=== PATIENT | male | born 1950 | race Hispanic/Latino ===

== ENCOUNTER 2018-01-19 14:07 | Emergency (ER) | payer MEDICARE ==
[2018-01-19 14:31] VITALS: PULSE 60
--- NOTE | 2018-01-19 15:37 | C.PDOC ---
History Of Present Illness 67 year old male with a Hx of prostate cancer, asthma, hypothyroidism, and Parkinson's disease presents to the ER with a complaint of lumps to the bilateral groin for the past 3 weeks. Patient has not been able to see his PMD or urologist because they are both on vacation. He is worried whether he can still exercise for his Parkinson's and worried if it may be his cancer. Patient has not received any treatment for his cancer, states he is just being observed for now. Denies pain, discharge, bleeding, or Hx of similar. Time Seen by Provider: 01/19/18 15:16 Chief Complaint (Nursing): Groin Pain History Per: Patient History/Exam Limitations: no limitations Onset/Duration Of Symptoms: Days Current Symptoms Are (Timing): Still Present Quality Of Discomfort: Pressure Associated Symptoms: denies: Fever, Chills, Urinary Symptoms Alleviating Factors: None Recent travel outside of the [place]: No Past Medical History Reviewed: Historical Data, Nursing Documentation, Vital Signs Vital Signs: Last Vital Signs Temp 98.0 F 01/19/18 14:27 Pulse 60 01/19/18 14:27 Resp 16 01/19/18 14:27 BP 123/75 01/19/18 14:27 Pulse Ox 94 L 01/19/18 15:44 - Medical History PMH: Asthma, Hypothyroidism, Parkinson's Disease Surgical History: Tonsillectomy Family History: States: Unknown Family Hx - Social History Hx Alcohol Use: No Hx Substance Use: No Review Of Systems Except As Marked, All Systems Reviewed And Found Negative. Genitourinary: Positive for: Other (Lumps to bilateral groin) Physical Exam - Physical Exam Appears: Non-toxic Skin: Normal Color, Warm, Dry Head: Atraumatic, Normacephalic Eye(s): bilateral: Normal Inspection Oral Mucosa: Moist Chest: Symmetrical, No Tenderness Cardiovascular: Rhythm Regular Respiratory: Normal Breath Sounds, No Rales, No Rhonchi, No Wheezing Gastrointestinal/Abdominal: Soft, No Tenderness, Hernia (Reducible umbilical) Male Genital: Other (Nontender bilateral reducible inguinal hernias. Both testis have decended, no penile lesions.) Neurological/Psych: Oriented x3, Normal Speech ED Course And Treatment O2 Sat by Pulse Oximetry: 94 (Room air) Pulse Ox Interpretation: Normal Disposition - Disposition Referrals: Janell Meier MD [Staff Provider] - Disposition: HOME/ ROUTINE Disposition Time: 15:46 Condition: STABLE Additional Instructions: follow up with Dr. Meier within 2 days call to make an appointment wear supportive undergarments continue home medications return to ER if symptoms worsens or progress Instructions: Inguinal and Femoral (Groin) Hernias Forms: [employer] ([place]), General Discharge Instructions - Clinical Impression Clinical Impression: Inguinal hernia - Scribe Statement The provider has reviewed the documentation as recorded by the Scribe Evens Gaines All medical record entries made by the Laminibe were at my direction and personally dictated by me. I have reviewed the chart and agree that the record accurately reflects my personal performance of the history, physical exam, medical decision making, and the department course for this patient. I have also personally directed, reviewed, and agree with the discharge instructions and disposition.
[2018-01-19 16:06] VITALS: BP 132/79; RESP 18; TEMP 98.7; O2SAT 95
== END 2018-01-19 16:10 | disposition home or self-care (01) ==
LOC: C.ER 14:07
DX: K40.20 Bilateral inguinal hernia, without obstruction or gangrene, not specified as recurrent (principal)

== ENCOUNTER 2018-04-29 16:47 | Inpatient (IN) | payer MEDICARE ==
[2018-04-29 16:59] VITALS: BMI 25.6
[2018-04-29] MEDS ORDERED: Enoxaparin 40 mg Syringe SC STA (17:10)
[2018-04-29] MEDS ORDERED: Aspirin 325 mg EC Tablets PO STA (17:12)
[2018-04-29 17:22] LABS: BASO % 0.4 % (0.0-2.0); EOS # 0.2 K/uL (0.0-0.7); HEMOGLOBIN 15.1 g/dL (12.0-18.0); LYMPH # 1.4 K/uL (1.0-4.3); LYMPH % 16.8 % (20.0-40.0); MEAN CELL VOLUME 87.7 fL (80.0-94.0); MEAN CORPUSCULAR HEMOGLOBIN 28.9 pg (27.0-31.0); MEAN PLATELET VOLUME 9.5 fL (7.2-11.7); MONO # 0.5 K/uL (0.0-0.8); MONO % 6.3 % (0.0-10.0); NEUT % 74.5 % (50.0-75.0); RBC 5.23 Mil/uL (4.40-5.90); RED CELL DISTRIBUTION WIDTH 14.6 % (11.5-14.5); WHITE BLOOD COUNT 8.1 K/uL (4.8-10.8)
[2018-04-29] MEDS ORDERED: Enoxaparin 80 mg Syringe ONE (17:22)
[2018-04-29] MEDS ORDERED: Aspirin 325 mg EC Tablets PO ONE (17:22)
--- NOTE | 2018-04-29 17:26 | C.PDOC ---
History Of Present Illness 68yo male, with history of Parkinsons disease, sent to ER from his PMD due to new onset rapid A-fib, diagnosed during routine pre-op EKG. Patient denies any palpitations or chest pain. he reports mild vertigo at baseline, which worsens with standing; patient attributes vertigo to his Parkinsons disease. No additional complaints. Time Seen by Provider: 04/29/18 17:09 Chief Complaint (Nursing): Chest Pain History Per: Patient History/Exam Limitations: no limitations Current Symptoms Are (Timing): Still Present Quality: denies: "Pain" Associated Symptoms: denies: Nausea, Dyspnea, Diaphoresis, Syncope Additional History Per: Patient Past Medical History Reviewed: Historical Data, Nursing Documentation, Vital Signs Vital Signs: Last Vital Signs Temp 97.7 F 04/29/18 17:00 Pulse 133 H 04/29/18 17:00 Resp 18 04/29/18 17:00 BP 128/72 04/29/18 17:00 Pulse Ox 97 04/29/18 17:00 - Medical History PMH: Asthma, Hypothyroidism, Parkinson's Disease Surgical History: Tonsillectomy Family History: States: No Known Family Hx - Social History Hx Tobacco Use: No Hx Alcohol Use: No Hx Substance Use: No Review Of Systems Except As Marked, All Systems Reviewed And Found Negative. Constitutional: Negative for: Fever, Chills Cardiovascular: Negative for: Chest Pain, Palpitations Gastrointestinal: Negative for: Nausea, Vomiting Neurological: Positive for: Dizziness Physical Exam - Physical Exam Appears: Non-toxic, No Acute Distress Skin: Normal Color, Warm, Dry Head: Atraumatic, Normacephalic Eye(s): bilateral: Normal Inspection Neck: Normal ROM, Supple Chest: Symmetrical Cardiovascular: Rhythm Irregular (tachycardia, irregularly irregular) Respiratory: Normal Breath Sounds Gastrointestinal/Abdominal: Normal Exam, Soft Extremity: Normal ROM, No Deformity, Other (mild right arm tremor, with rate of 6/second) Neurological/Psych: Oriented x3 ED Course And Treatment - Laboratory Results Result Diagrams: 04/29/18 17:18 04/29/18 17:18 Lab Interpretation: Normal (d-dimer neg, trop neg) ECG: Interpreted By Tx ECG Rhythm: Atrial Fibrillation ECG Interpretation: Abnormal Rate From EC O2 Sat by Pulse Oximetry: 97 (RA) Pulse Ox Interpretation: Normal - Radiology CXR: Interpreted by Me CXR Interpretation: Yes: No Acute Disease - Physician Consult Information Outcome Of Conversation: 1814: d/w Dr. Arias, Medicine [place], ok to admit Medical Decision Making Medical Decision Making: Impression: New onset AFib Plan: -- EKG -- Labs -- CXR -- Aspirin 325mg PO -- Cardizem 60mg PO -- Lovenox 80mg SC new onset MEET Disposition Doctor Will See Patient In The: Hospital Counseled Patient/Family Regarding: Studies Performed, Diagnosis - Disposition Disposition: HOSPITALIZED Disposition Time: 18:42 Condition: GOOD Forms: [employer] ([place]) - Clinical Impression Clinical Impression: Atrial fibrillation with RVR - Scribe Statement The provider has reviewed the documentation as recorded by the Lisa Jensen Provider Attestation: All medical record entries made by the Lisa were at my direction and personally dictated by me. I have reviewed the chart and agree that the record accurately reflects my personal performance of the history, physical exam, medical decision making, and the department course for this patient. I have also personally directed, reviewed, and agree with the discharge instructions and disposition.
[2018-04-29 17:57] LABS: INR 1.1; PARTIAL THROMBOPLASTIN TIME 42 SECONDS (21-34); PROTHROMBIN TIME 11.5 SECONDS (9.7-12.2)
[2018-04-29 18:02] LABS: D DIMER < 200 ng/mlDDU (0-243)
[2018-04-29 18:24] LABS: ALB/GLOB RATIO 1.6 (1.0-2.1); ALBUMIN 4.3 g/dL (3.5-5.0); ALT/SGPT 13 U/L (21-72); AST/SGOT 29 U/L (17-59); BLOOD UREA NITROGEN 20 mg/dL (9-20); CALCIUM 9.2 mg/dl (8.6-10.4); GFR NON-AFRICAN AMERICAN > 60
[2018-04-29 18:37] LABS: B-TYPE NATRIURETIC PEPTIDE 2380 pg/mL (0-900)
--- NOTE | 2018-04-29 18:51 | RAD ---
Date of service: 04/29/2018 PROCEDURE: CHEST RADIOGRAPH, 1 VIEW HISTORY: SOB COMPARISON: None available. FINDINGS: LUNGS: Clear. PLEURA: No pneumothorax or pleural fluid seen. CARDIOVASCULAR: No aortic atherosclerotic calcification present. No radiographic findings to suggest acute or significant cardiovascular disease. OSSEOUS STRUCTURES: No significant abnormalities. VISUALIZED UPPER ABDOMEN: Normal. OTHER FINDINGS: None. IMPRESSION: No active disease. Concordant results with the preliminary interpretation rendered by the emergency department physician procedure.
[2018-04-29 19:14] LABS: HDL CHOLESTEROL 63 mg/dL (30-70)
[2018-04-29 19:23] LABS: CK-MB 2.05 ng/mL (0.0-3.38)
[2018-04-29 19:25] LABS: LDL CHOLESTEROL 75 mg/dL (0-129)
[2018-04-29 20:31] VITALS: RESP 20
--- NOTE | 2018-04-29 23:53 | CP.PCM.HP ---
Past Patient History - Infectious Disease Hx of Infectious Diseases: None - Past Social History Smoking Status: Former Smoker - PULMONARY Hx Asthma: Yes - NEUROLOGICAL Hx Parkinson's Disease: Yes - ENDOCRINE/METABOLIC Hx Hypothyroidism: Yes - HEMATOLOGICAL/ONCOLOGICAL Hx Cancer: Yes (PROSTATE) - PSYCHIATRIC Hx Substance Use: No - SURGICAL HISTORY Hx Tonsillectomy: Yes - ANESTHESIA Hx Anesthesia: Yes Hx Anesthesia Reactions: No Meds Allergies/Adverse Reactions: Allergies Allergy/AdvReac Type Severity Reaction Status Date / Time No Known Allergies Allergy Verified 04/29/18 16:58 Results - Vital Signs Recent Vital Signs: Last Vital Signs Temp 97.3 F L 04/29/18 20:30 Pulse 91 H 04/29/18 21:51 Resp 20 04/29/18 21:51 BP 96/65 L 04/29/18 21:51 Pulse Ox 97 04/29/18 20:30 - Labs Result Diagrams: 04/29/18 17:18 04/29/18 17:18 Labs: Laboratory Results - last 24 hr 04/29/18 04/29/18 04/29/18 17:18 17:18 17:43 WBC 8.1 RBC 5.23 Hgb 15.1 Hct 45.8 MCV 87.7 MCH 28.9 MCHC 33.0 RDW 14.6 H Plt Count 224 MPV 9.5 Neut % (Auto) 74.5 Lymph % (Auto) 16.8 L Victoria % (Auto) 6.3 Eos % (Auto) 2.0 Baso % (Auto) 0.4 Neut # (Auto) 6.0 Lymph # (Auto) 1.4 Victoria # (Auto) 0.5 Eos # (Auto) 0.2 Baso # (Auto) 0.0 PT 11.5 INR 1.1 APTT 42 H D-Dimer, Quantitative < 200 Sodium 139 Potassium 4.2 Chloride 101 Carbon Dioxide 28 Anion Gap 14 BUN 20 Creatinine 0.7 L Est GFR ( Amer) > 60 Est GFR (Non-Af Amer) > 60 Random Glucose 127 H Calcium 9.2 Total Bilirubin 0.9 AST 29 ALT 13 L Alkaline Phosphatase 66 Total Creatine Kinase 92 CK-MB (Mass) 2.05 Troponin I 0.0120 NT-Pro-B Natriuret Pep 2380 H Total Protein 7.1 Albumin 4.3 Globulin 2.8 Albumin/Globulin Ratio 1.6 Triglycerides 68 Cholesterol 143 LDL Cholesterol Direct 75 HDL Cholesterol 63 TSH 3rd Generation 2.64
[2018-04-30 00:49] LABS: CK-MB 1.44 ng/mL (0.0-3.38)
[2018-04-30] MEDS ORDERED: Levothyroxine 150 MCG TAB PO SCH (06:30)
--- NOTE | 2018-04-30 07:14 | HP ---
CHIEF COMPLAINT: Abnormal EKG. HISTORY OF PRESENT ILLNESS: This is a 68-year old white male who has history of Parkinson's disease, and the patient went to his PMD in [facility] for preoperative evaluation for inguinal hernia repair, and an EKG was done, and he was found to have atrial fibrillation. At that point, he was told to go and see a tobacco conditioner, and he came to emergency room and he was hospitalized. The patient denies any dizziness, chest pain. He gets palpitation at time. He denies any nausea, vomiting, diarrhea. He denies any history of polyuria, polydipsia, or polyphagia. He denies any history of hematuria, pyuria. He denies any sneezing, itchy eyes, itchy nose. The patient denies any cough, sore throat. He has a history of hypothyroidism; and he is on thyroid replacement therapy, and he denies any joint pain. He denies any tingling, numbness, or paraesthesia. He denies any history of trauma, fall, loss of consciousness. No history of seizure-like activity. No history of joint pain, hip pain. No history of GI bleeding. He denies any history of dyspnea on exertion. PAST MEDICAL HISTORY: Hypothyroidism, Parkinson's disease, asthma, tonsillectomy. SOCIAL HISTORY: Nonsmoker. Non-ETOH user. CURRENT MEDICATIONS: He is on Synthroid and levothyroxine. PHYSICAL EXAMINATION: GENERAL: An elderly male, in no acute distress. The patient looks young per his age, and he is healthy. VITAL SIGNS: Blood pressure 128/72; pulse 133, irregularly irregular; respiratory rate 18; temperature 97.7. SKIN: Good turgor. No bruit. No purpura. No petechia. No ecchymosis. HEENT: Atraumatic. Normocephalic. Negative pallor. Negative jaundice. Extraocular movements are intact. NECK: Supple. No JVD. No lymph node. No thyromegaly. No carotid bruits. CHEST WALL: Bilateral symmetrical expansion. No tenderness. No deformity. No masses. LUNGS: Bilateral decreased air entry. No rales. No rhonchi. CARDIOVASCULAR SYSTEM: PMI in fifth intercostal space. S1 and S2 irregularly irregular. ABDOMEN: Soft and nontender. Bowel sounds are positive. RECTAL: No masses. No bleeding. EXTREMITIES: No clubbing, cyanosis, or edema. CENTRAL NERVOUS SYSTEM: Awake, alert, and oriented x3. Cranial nerves II through XII are normal. Power is 5/5 x4. Plantars are downgoing. ASSESSMENT: 1. New onset atrial fibrillation which is persistent etiology. Rule out hyperthyroidism with atrial fibrillation. Rule out hypertensive heart disease. Less likely to be diabetic cardiomyopathy, less likely to be ischemia. 2. Hypothyroidism, right now the patient is euthyroid. PLAN: Admit. Detailed orders written. Seen and examined. Maulik Arias MD
[2018-04-30 09:20] VITALS: TEMP 97.9
[2018-04-30 16:21] VITALS: BP 119/74; PULSE 110; O2SAT 97
--- NOTE | 2018-04-30 20:23 | CP.PCM.PN ---
Subjective - Subjective Subjective: dictated Objective - Vital Signs/Intake and Output Vital Signs (last 24 hours): Temp Pulse Resp BP Pulse Ox 97.9 F 110 H 20 119/74 97 04/30/18 15:19 04/30/18 15:19 04/30/18 15:19 04/30/18 15:19 04/30/18 15:19 - Medications Medications: Current Medications Carbidopa/Levodopa (Sinemet) 1 tab PO TID [facility] Last Admin: 04/30/18 17:14 Dose: 1 tab Diltiazem HCl (Cardizem) 30 mg PO Q8 [facility] Last Admin: 04/30/18 13:53 Dose: 30 mg Influenza Virus Vaccine (Fluzone Quad [id number]) 60 mcg IM .ONCE ONE Stop: 05/01/18 10:01 Levothyroxine Sodium (Synthroid) 150 mcg PO DAILY@0630 [facility] Last Admin: 04/30/18 06:25 Dose: 150 mcg Pneumococcal Polyvalent Vaccine (Pneumovax 23 Vaccine) 0.5 ml IM .ONCE ONE Stop: 05/01/18 10:01 Rivaroxaban (Xarelto) 15 mg PO BID [facility] Last Admin: 04/30/18 17:15 Dose: 15 mg Rosuvastatin Calcium (Crestor) 5 mg PO HS [facility] Last Admin: 04/29/18 21:49 Dose: 5 mg - Labs Labs: 04/29/18 17:18 04/29/18 17:18 PT 11.5 SECONDS (9.7-12.2) 04/29/18 17:43 INR 1.1 04/29/18 17:43 APTT 42 SECONDS (21-34) H 04/29/18 17:43
--- NOTE | 2018-05-01 02:16 | PN ---
DATE: 04/30/2018 SUBJECTIVE: The patient is afebrile. No shortness of breath. No chest pain. He had a small run of V-tach. PHYSICAL EXAMINATION VITAL SIGNS: Blood pressure 119/74, pulse 110, respiratory rate 20, temperature 97.9. LUNGS: Clear. CARDIOVASCULAR: S1 and S2 irregularly irregular. ABDOMEN: Soft. ASSESSMENT: 1. Atrial fibrillation with rapid ventricular response. 2. Hypertension. 3. Hypothyroidism. 4. Parkinson's disease. PLAN: The patient wants to sign out. Paper work has been given to the patient. Monitor the patient. Maulik Arias MD
[2018-05-01] MEDS ORDERED: Pneumococcal 23-Valent Vaccine IM ONE (10:00)
[2018-05-01] MEDS ORDERED: Influenza Vaccine 60 MCG/0.5 ML SYR (3 yr & up) IM ONE (10:00)
--- NOTE | 2018-05-01 17:50 | CARD ---
APPROVED REPORT Date of service: 04/30/2018 EXAM: Two-dimensional and M-mode echocardiogram with Doppler and color Doppler. Other Information Quality : GoodRhythm : NSRAtrial Fibrillation INDICATION Atrial Fibrillation RISK FACTORS Hypertension Hyperlipidemia 2D DIMENSIONS IVSd1.6 (0.7-1.1cm)Aortic Root (2D)3.2 (2.0-3.7cm) LVDd3.9 (3.9-5.9cm)PWd1.7 (0.7-1.1cm) LA Civbup017 (18-58mL)LVDs2.9 (2.5-4.0cm) FS (%) 26.5 %LVEF (%)52.5 (>50%) M-Mode DIMENSIONS RVDd2.73 (2.1-3.2cm)Left Atrium (MM)5.62 (2.5-4.0cm) IVSd0.94 (0.7-1.1cm)Aortic Root3.79 (2.2-3.7cm) LVDd6.05 (4.0-5.6cm)Aortic Cusp Exc.1.76 (1.5-2.0cm) PWd0.90 (0.7-1.1cm)FS (%) 34 % LVDs4.02 (2.0-3.8cm)LVEF (%)61 (>50%) Aortic Valve AoV Peak Tuuvfoth495.1cm/Brown Peak GR.7mmHg Mitral Valve MV E Ikqndepe14.7cm/sMV A Ythxckhw01.2cm/sE/A ratio1.1 TDI Medial E' Peak V9.71cm/sE/Lateral E'0.0E/Medial E'7.3 Tricuspid Valve TR Peak Emxaiazb628in/sTR Peak Gr.[id number] LEFT VENTRICLE The left ventricle is normal size. There is normal left ventricular wall thickness. Left ventricle systolic function is normal. The Ejection Fraction is 50-55%. There is normal LV segmental wall motion. The left ventricular diastolic function is normal. RIGHT VENTRICLE The right ventricle is normal size. There is normal right ventricular wall thickness. The right ventricular systolic function is normal. ATRIA The left atrium is mildly dilated. The right atrium is borderline dilated. The interatrial septum is intact with no evidence for an atrial septal defect. AORTIC VALVE The aortic valve is normal in structure. No aortic regurgitation is present. There is no aortic valvular stenosis. There is no aortic valvular vegetation. MITRAL VALVE The mitral valve is normal in structure. There is no evidence of mitral valve prolapse. There is no mitral valve stenosis. Mitral regurgitation is mild. TRICUSPID VALVE The tricuspid valve is normal in structure. There is mild tricuspid regurgitation. Right ventricular systolic pressure is estimated at 40-50 mmHg. There is mild-moderate pulmonary hypertension. PULMONIC VALVE The pulmonary valve is normal in structure. There is no pulmonic valvular regurgitation. GREAT VESSELS The aortic root is normal in size. PERICARDIAL EFFUSION There is no significant pericardial effusion. <Conclusion> Left ventricle systolic function is normal. The Ejection Fraction is 50-55%. No aortic regurgitation is present. Mitral regurgitation is mild. There is mild tricuspid regurgitation. There is mild-moderate pulmonary hypertension. There is no pulmonic valvular regurgitation.
--- NOTE | 2018-05-03 19:28 | CARD ---
APPROVED REPORT Date of service: 04/30/2018 EKG Measurement Heart [id number] <Conclusion> Atrial fibrillation with rapid ventricular response Abnormal ECG
== END 2018-04-30 18:45 | disposition left against medical advice (07) | DRG 310 ==
LOC: C.ER 16:47 → C.6T 18:22
PROVIDERS: ADMIT Internal Medicine; ATTEND Internal Medicine
DX: I48.91 Unspecified atrial fibrillation (principal); G20 Parkinson's disease; J45.909 Unspecified asthma, uncomplicated; Z87.891 Personal history of nicotine dependence; I10 Essential (primary) hypertension; E03.9 Hypothyroidism, unspecified